=== PATIENT | male | born 1980 | race Caucasian/White ===

== ENCOUNTER 2024-02-20 10:35 | Emergency (ER) | payer MEDICAID ==
[2024-02-20 11:43] LABS: AMPHETAMINES SCREEN, URINE PRESUMPTIVE POSITIVE (NEGATIVE); BARBITURATE SCREEN,URINE NEGATIVE (NEGATIVE); BENZODIAZEPINES SCREEN,URINE NEGATIVE (NEGATIVE); METHADONE SCREEN, URINE NEGATIVE (NEGATIVE); METHAMPHETAMINES SCREEN, URINE PRESUMPTIVE POSITIVE (NEGATIVE); OXYCODONE SCREEN,URINE NEGATIVE (NEGATIVE); PROPOXYPHENE SCREEN,URINE NEGATIVE (NEGATIVE); THC SCREEN,URINE 50 NG/ML PRESUMPTIVE POSITIVE (NEGATIVE)
[2024-02-20] MEDS: Ibuprofen 600 MG Tab PO ONE (11:46)
[2024-02-20 11:47] LABS: BASOPHILS ABSOLUTE AUTO 0.04 K/uL (0.00-0.10); BASOPHILS PERCENT AUTO 0.5 % (0.1-1.3); EOSINOPHILS ABSOLUTE AUTO 0.19 K/uL (0.00-0.40); EOSINOPHILS PERCENT AUTO 2.4 % (0.0-5.4); HEMATOCRIT 39.9 % (38.4-49.7); HEMOGLOBIN 14.4 g/dL (12.9-16.9); IMMATURE GRAN ABSOLUTE AUTO 0.02 K/uL (0.00-0.23); IMMATURE GRAN PERCENT AUTO 0.3 % (0.0-0.7); LYMPHOCYTES ABSOLUTE AUTO 2.05 K/uL (0.8-3.3); LYMPHOCYTES PERCENT AUTO 26.2 % (11.4-47.7); MEAN CORPUSCULAR HEMOGLOBIN 32.1 pg (31.6-35.5); MEAN CORPUSCULAR HGB CONC 36.1 g/dL (31.6-35.5); MEAN CORPUSCULAR VOLUME 89.1 fL (81.4-99.0); MONOCYTES ABSOLUTE AUTO 0.68 K/uL (0.20-0.90); MONOCYTES PERCENT AUTO 8.7 % (3.3-12.6); NEUTROPHILS ABSOLUTE AUTO 4.85 K/uL (1.0-7.6); NEUTROPHILS PERCENT AUTO 61.9 % (40.0-78.1); PLATELET COUNT,PLT 154 K/uL (130-375); RED BLOOD CELL COUNT 4.48 M/uL (4.14-5.76); WHITE BLOOD CELL COUNT,WBC 7.8 K/uL (3.2-11.0)
[2024-02-20 12:03] LABS: CALCIUM 8.9 mg/dL (8.5-10.1); CREATININE 0.9 mg/dL (0.8-1.3); EST CRCL DRUG DOSING (CG) 123.05 mL/min; POTASSIUM,K 3.5 mmol/L (3.6-5.2)
[2024-02-20 12:04] LABS: ANION GAP 12.5 mmol/L (5.0-14.0)
[2024-02-20] MEDS ORDERED: Ketamine 500 MG/5 ML MDV IM ONE (17:42)
[2024-02-21] MEDS ORDERED: Non-Formulary Medication 1 Each (Lamotrigine [Lamotrigine] 150 MG Tablet) PO SCH (09:00)
[2024-02-21] MEDS ORDERED: Non-Formulary Medication 1 Each (Escitalopram Oxalate [Lexapro] 20 MG Tablet) PO SCH (09:00)
== END 2024-02-20 17:45 | disposition left against medical advice (07) ==
LOC: JP.ED 10:35
DX: R45.851 Suicidal ideations (principal); Z79.899 Other long term (current) drug therapy
CPT/HCPCS: 36415; 80048; 80305; 80307; 85025; 99284; A9270

== ENCOUNTER 2024-02-21 06:45 | Emergency (ER) | payer MEDICAID ==
[2024-02-21] MEDS: LORazepam 0.5 MG Tab PO ONE (12:29)
[2024-02-21] MEDS: Thiamine 100 MG Tab PO SCH (12:29)
[2024-02-21] MEDS: Folic Acid 1 MG Tab PO SCH (12:30)
[2024-02-21] MEDS: QUEtiapine 25 MG Tab PO ONE (12:30)
[2024-02-21] MEDS: Topiramate 25 MG Tab PO SCH (12:30)
== END 2024-02-21 19:25 | disposition home or self-care (01) ==
LOC: JP.ED 06:45
DX: F19.10 Other psychoactive substance abuse, uncomplicated (principal); Z79.899 Other long term (current) drug therapy
CPT/HCPCS: 36415; 80307; 99284; A9270